=== PATIENT | female | born 1985 | race Caucasian/White ===

== ENCOUNTER → 2023-08-20 08:58 | Outpatient (REF) | payer OTHER, SELFPAY | LOC: RAD 08:58 | PROVIDERS: ATTENDING PHYSICIAN Internal Medicine Rheumatology; FAMILY PHYSICIAN Family Medicine | DX: M19.90 Unspecified osteoarthritis, unspecified site (principal); M25.551 Pain in right hip; M54.50 Low back pain, unspecified; M79.641 Pain in right hand | CPT/HCPCS: 72110; 73130; 73523 ==

== ENCOUNTER 2024-01-09 12:29 | Emergency (ER) | payer OTHER, SELFPAY ==
[2024-01-09 12:35] VITALS: BP 130/85
--- NOTE | 2024-01-09 13:30 | ED.GENMED ---
History of Present Illness
General
Chief Complaint: Swelling
Time Seen by Provider: 01/09/24 12:44
History of Present Illness
History of Present Illness:
38-year-old female presents to the emergency department for evaluation of vaginal pain secondary to a known Bartholin gland cyst. Was seen by her MANAGER [employer] yesterday and I&D was performed, however the patient states there was no drainage. She was
started on cephalexin and Bactrim. She has worsening pain today prompting her visit to the ER
Past History
Past History
ED Past Medical History: None
ED Past Surgical History: None
Review of Systems
Review of Systems
Allergies reviewed?: Yes
All Other Systems: ROS reviewed and negative except as documented in HPI and ROS
Phy Exam
Physical Exam
Physical Exam:
GEN: Well appearing, NAD, WDWN
HEENT: Oral mucosa moist, no scleral icterus
Cardiac: Regular rate
Lung: No respiratory distress, no tachypnea
MSK: No gross deformity or injuries
: L sided bartholin gland abscess, indurated
Skin: Good color, no pallor or jaundice, no rashes
Neuro: AO x3, moves all extremities freely
Psych: Calm, cooperative
Course
Orders/Labs/Results
Orders:
Orders
01/09/24 13:29
Oxycodone [Roxicodone] 5 mg PO NOW STA
Vital Signs
Initial and Last Documented VS:
Initial Vital Signs
Temp Pulse Resp BP Pulse Ox
98.2 F 90 18 130/85 100
01/09/24 12:35 01/09/24 12:35 01/09/24 12:35 01/09/24 12:35 01/09/24 12:35
Last Documented Vital Signs
Temp Pulse Resp BP Pulse Ox
98.2 F 90 18 130/85 100
01/09/24 12:35 01/09/24 12:35 01/09/24 12:35 01/09/24 12:35 01/09/24 12:35
Procedures
Incision/Drainage/Joint Aspiration
L bartholin gland:
Anethesia: 1% Lidocaine with Epi
Preparation: cleaned with alcohol wipe
Type of procedure: incise and drain
Nature of site: abscess
Description of abscess: less than 3cm
Loculations broken up: Yes
How much fluid was obtained?: large amount
Fluid description: purulent
Treatment: other (Word Catheter placed)
Additional information:
Procedure performed under ultrasound guidance
MDM/Problems Addressed
MDM/Problems Addressed:
Plan abscess was drained and Word catheter was placed, patient has planned follow-up on Thursday with [facility]. Will continue cephalexin and Bactrim
*Critical Care Note
Total Time (30-74mins, 75-104mins- exclusive of procedures): Not Applicable
ED Attending Note
-
Portions of this chart may have been created with voice recognition software.� Occasional wrong word or��sound alike� substitutions may have occurred due to the inherent limitations of voice recognition software.
Discharge Plan
Departure
Patient Disposition: Home (Routine Discharge)
Date of Disposition: 01/09/24
Time of Disposition: 13:30
Patient with high blood pressure during this ER visit?: No
Discharge Problem:
Abscess of left Bartholin's gland
Instructions: Bartholin gland cyst
Prescriptions:
No Action
cyclobenzaprine 10 MG tablet
10 mg PO TIDPRN PRN (Reason: spasm) Qty: 9 0RF
prednisone 10 MG tablet
10 mg PO .TAPER Qty: 30 0RF
Rx Instructions:
Take 40mg daily x3days, 30mg daily x3days,
20mg daily x3days, 10mg daily x3days.
Referrals:
Zeke Mckeon, [Family Provider] -
Activity Restrictions/Additional Instructions:
Warm compresses
Continue antibiotics
Ibuprofen 400mg for pain
Follow up with [facility] [employer]
Interventions
Interventions:
*Risk Screen - Suicide Last Done: 01/09/24 12:35
*General Assessment Last Done: 01/09/24 12:35
*Neglect/Abuse Screening Last Done: 01/09/24 12:35
*ED COVID-19 Vaccine History Last Done: 01/09/24 12:35
Discharge Date and Time
Print Language: [place]
[2024-01-09] MEDS: ROXICODONE 5 MG PO (13:34)
== END 2024-01-09 14:18 | disposition home or self-care (01) ==
LOC: EMR 12:29
PROVIDERS: EMERGENCY PHYSICIAN Emergency Medicine; FAMILY PHYSICIAN Family Medicine
DX: N75.0 Cyst of Bartholin's gland (principal); Z91.048 Other nonmedicinal substance allergy status
CPT/HCPCS: 99283; 56420

== ENCOUNTER → 2024-08-01 10:56 | Outpatient (REF) | payer OTHER, SELFPAY ==
[2024-08-01 12:58] VITALS: BP 116/75; BP_SYST 70
[2024-08-01 13:27] VITALS: BP 116/70
== END ==
LOC: RADI 10:56
PROVIDERS: ATTENDING PHYSICIAN Orthopaedic Surgery Sports Medicine; FAMILY PHYSICIAN Family Medicine
DX: M25.551 Pain in right hip (principal)
CPT/HCPCS: 20610; 77002

== ENCOUNTER 2024-08-08 09:33 | Outpatient (RCR) | payer OTHER, SELFPAY | END 2024-08-08 23:59 | disposition home or self-care (01) | LOC: RPT 09:33 | PROVIDERS: ATTENDING PHYSICIAN Orthopaedic Surgery Sports Medicine; FAMILY PHYSICIAN Family Medicine | DX: S76.011D Strain of muscle, fascia and tendon of right hip, subsequent encounter (principal); Z73.6 Limitation of activities due to disability; M54.50 Low back pain, unspecified; M62.81 Muscle weakness (generalized) | CPT/HCPCS: 97110; 97162 ==

== ENCOUNTER 2024-09-06 17:06 | Outpatient (RCR) | payer OTHER, SELFPAY | END 2024-09-06 23:59 | disposition home or self-care (01) | LOC: RPT 17:06 | PROVIDERS: ATTENDING PHYSICIAN Orthopaedic Surgery Sports Medicine; FAMILY PHYSICIAN Family Medicine | DX: S76.011D Strain of muscle, fascia and tendon of right hip, subsequent encounter (principal); Z73.6 Limitation of activities due to disability; M62.81 Muscle weakness (generalized) | CPT/HCPCS: 97110; 97112; 97140 ==

== ENCOUNTER → 2024-09-14 13:38 | Outpatient (REF) | payer OTHER, SELFPAY | LOC: MRI 3T 13:38 | PROVIDERS: ATTENDING PHYSICIAN Orthopaedic Surgery Sports Medicine; FAMILY PHYSICIAN Family Medicine | DX: S76.011A Strain of muscle, fascia and tendon of right hip, initial encounter (principal) | CPT/HCPCS: 27093; 73525; 73722 ==

== ENCOUNTER 2024-09-15 18:22 | Outpatient (RCR) | payer OTHER, SELFPAY | END 2024-09-15 23:59 | disposition home or self-care (01) | LOC: RPT 18:22 | PROVIDERS: ATTENDING PHYSICIAN Orthopaedic Surgery Sports Medicine; FAMILY PHYSICIAN Family Medicine | DX: S76.011D Strain of muscle, fascia and tendon of right hip, subsequent encounter (principal); Z73.6 Limitation of activities due to disability; M62.81 Muscle weakness (generalized) | CPT/HCPCS: 97110; 97112 ==